=== PATIENT | male | born 1950 | race Caucasian/White ===

== ENCOUNTER 2019-02-01 11:03 | Outpatient (CLI) | payer MEDICARE ==
[2019-02-01 12:30] LABS: Bilirubin Negative (Negative); Blood, Urine Negative (Negative); Clarity CLEAR (Clear); Glucose, Urine (Dipstick) Negative (Negative); Leukocyte Small (Negative); Nitrite Negative (Negative); Protein, Urine (Dipstick) Negative (Neg-Trace); Specific Gravity, Urine 1.017 (1.002-1.036); pH, Urine 6.5 (5.0-9.0)
[2019-02-01 12:35] LABS: Bacteria/HPF None Seen HPF (None Seen); Hyaline Casts/LPF 0-3 HYALINE CAST LPF (0-3 Hyaline); Squamous Epithelial None Seen HPF (0-3); WBC/HPF 0-3 HPF (0-3)
[2019-02-01 12:39] LABS: Anion Gap 16 mmol/L (10-20); BUN (Urea Nitrogen) 16 mg/dL (8.4-25.7); Calc. Creatinine Clearance 0 mL/min (70-130); Calcium 9.6 mg/dL (7.8-10.44); Carbon Dioxide 26 mmol/L (23-31); Chloride 102 mmol/L (98-107); Estimated GFR-MDRD 87; Glucose 96 mg/dL (80-115); Sodium 140 mmol/L (136-145)
[2019-02-01 12:42] LABS: #Lymphocytes 1.4 thou/uL (1.20-3.40); #Monocytes 0.6 thou/uL (0.11-0.59); #Neutrophils 2.9 thou/uL (1.40-6.50); %Basophils 0.8 % (0.0-1.0); %Eosinophils 0.9 % (0.0-10.0); %Lymphocytes 28.5 % (21.0-51.0); %Monocytes 11.1 % (0.0-10.0); %Neutrophils 58.7 % (42.0-75.0); Hemoglobin 15.6 g/dL (14.0-18.0); MDiff Complete? YES; Macrocytosis SLIGHT = 6-15 cells (100X) (0-5/hpf); Mean Corpuscular HGB CONC 33.2 g/dL (32.0-36.0); Mean Corpuscular Hemoglobin 35.9 pg (27.0-31.0); Mean Platelet Volume 7.3 fL (7.4-10.4); Platelet Count 158 thou/uL (130-400); Platelet Morphology Comment Appears Adequate; RBC Distribution Width 10.9 % (11.5-14.5); Red Blood Cell (RBC) Count 4.34 mill/uL (4.70-6.10)
== END 2019-02-01 11:04 | disposition home or self-care (01) ==
LOC: LABBT 11:03
PROVIDERS: ATTEND Orthopaedic Surgery Hand Surgery
DX: Z01.818 Encounter for other preprocedural examination (principal); M72.0 Palmar fascial fibromatosis [Dupuytren]
CPT/HCPCS: 80048; 81001; 85025; 93005; 93010

== ENCOUNTER 2019-02-02 08:43 | Day surgery (SDC) | payer MEDICARE ==
[2019-02-01 11:23] VITALS: BMI 29.2
[2019-02-02] MEDS ORDERED: Betamet Acet/Betamet Na Ph 30 MG/5 ML VIAL ONE (10:34)
[2019-02-02] MEDS ORDERED: Bupivacaine PF 0.5% 30 ML VIAL ONE (10:34)
[2019-02-02] MEDS ORDERED: Fentanyl 100 MCG/2 ML VIAL ONE (10:35)
[2019-02-02] MEDS ORDERED: Midazolam HCl 2 mg/2 ml Vial ONE (10:39)
[2019-02-02] MEDS ORDERED: Ketorolac Tromethamine 30 MG/ML VIAL ONE (13:09)
--- NOTE | 2019-02-02 13:55 | OP ---
DATE OF PROCEDURE: 02/02/2019 PREOPERATIVE DIAGNOSIS: Left small finger, ring finger, middle finger Dupuytren's cord all the way to the level of PIP joint of the ring finger proximal phalanx with the other 2 digits. POSTOPERATIVE FINDINGS: 1. Left small finger, ring finger, middle finger Dupuytren's cord all the way to the level of PIP joint of the ring finger proximal phalanx with the other 2 digits. 2. Neurological involvement with nerve in the deformity both digital nerves to the ring finger and the radial digital nerve to the ulnar finger, ulnar digital nerve to the middle finger. PROCEDURES PERFORMED: 1. Digital neuroplasty, small finger. 2. Digital neuroplasty, ring finger. 3. Digital neuroplasty, middle finger. 4. Subtotal palmar fasciectomy. SPECIMEN REMOVED: 8 cm Dupuytren's cords central over the ring finger to the level of the proximal interphalangeal joint. COMPLICATIONS: None. TOURNIQUET TIME: 63 minutes. BLOOD LOSS: 50 mL. DESCRIPTION OF PROCEDURE: After successful general endotracheal anesthesia, the patient had the limb prepped and draped. We again outlined the incision, had time-out done appropriately, injected with 20 mL of 0.5% Marcaine. We given the 20 in the midportion at the end of the case. We exsanguinated the limb, identified the lack of flexion, prepared for operative intervention. We then made a wide zigzag incision, beginning transverse carpal ligament, coursing in line with the cord especially on his more ulna insertion at the base of the middle phalanx. We carried to skin and subcutaneous tissue, identified the cord without skin dip or the laceration. We then were able to find a plane where we lifted up the palmar fascia all in line with the ring, small, and long finger on both radial and ulnar sides, making it nearly a subtotal fasciectomy. Once we had done this, we identified the neurovascular bundle and dissected them free from the central cord especially over the base of the proximal phalanx. We then removed the central cord mass and performed digital nerve neuroplasty under magnification to the other 2 digits as well. The patient had appropriate dressing applied, and will follow up with our clinic in 2 weeks. Job ID: [id number]
== END 2019-02-02 15:00 | disposition home or self-care (01) ==
LOC: SDC 08:43
PROVIDERS: ATTEND Orthopaedic Surgery Hand Surgery
PROC: 0JNK0ZZ Release Left Hand Subcutaneous Tissue and Fascia, Open Approach (ICD-10-PCS; principal; 2019-02-02)
PROC: 0LN80ZZ Release Left Hand Tendon, Open Approach (ICD-10-PCS; 2019-02-02)
PROC: 0LN80ZZ Release Left Hand Tendon, Open Approach (ICD-10-PCS; 2019-02-02)
DX: M72.0 Palmar fascial fibromatosis [Dupuytren] (principal); S63.255A Unspecified dislocation of left ring finger, initial encounter; I10 Essential (primary) hypertension; G47.30 Sleep apnea, unspecified; Z99.89 Dependence on other enabling machines and devices; W19.XXXA Unspecified fall, initial encounter; Z88.8 Allergy status to other drugs, medicaments and biological substances; Z79.899 Other long term (current) drug therapy
CPT/HCPCS: 88304; J0690; J0702; J1885; J2250; J3010; S0020

== ENCOUNTER 2025-07-05 11:26 | Outpatient (CLI) | payer MEDICARE | END 2025-07-05 11:27 | disposition home or self-care (01) | LOC: BICRAD 11:26 | PROVIDERS: ATTEND Nurse Practitioner Family | DX: M54.50 Low back pain, unspecified (principal); S49.91XA Unspecified injury of right shoulder and upper arm, initial encounter; R29.898 Other symptoms and signs involving the musculoskeletal system; M19.011 Primary osteoarthritis, right shoulder; M47.816 Spondylosis without myelopathy or radiculopathy, lumbar region | CPT/HCPCS: 72100 ==

== ENCOUNTER 2025-07-20 14:04 | Outpatient (CLI) | payer MEDICARE | END 2025-07-20 14:05 | disposition home or self-care (01) | LOC: MRI 14:04 | PROVIDERS: ATTEND Nurse Practitioner Family | DX: S49.91XA Unspecified injury of right shoulder and upper arm, initial encounter (principal); R29.898 Other symptoms and signs involving the musculoskeletal system; M75.111 Incomplete rotator cuff tear or rupture of right shoulder, not specified as traumatic; S43.431A Superior glenoid labrum lesion of right shoulder, initial encounter; M19.011 Primary osteoarthritis, right shoulder; M75.51 Bursitis of right shoulder ==